=== PATIENT | male | born 1950 | race Two or more races ===

== ENCOUNTER 2024-11-22 15:36 | Inpatient (IN) | payer MEDICARE, MEDICAID ==
[~2024-11-22] VITALS: Ht 177.8 cm; Wt 80.1 kg
--- NOTE | 2024-11-22 15:53 | ECG ---
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
--- NOTE | 2024-11-22 16:21 | ED.PDOC ---
History of Present Illness HPI Comments This is a 73-year-old male with past medical history of hypertension bilateral DVT on warfarin, PAD with s/p stent in both legs, presented to the ED with a chief complaint of right-sided chest and abdominal pain after a mechanical fall for 4 days. Patient states that 4 days ago he had a fall and got hurt in chest and abdomen and after that he has rt sided lower sternal and right subcostal pain which is 6/10, sharp pain, localized without any aggravating and relieving factors. He took Tylenol for the pain but it did not relieved the pain at all. Denies fever, chills, shortness of breath, heaviness in the chest, dizziness, lightheadedness, dysuria, hematuria or any change in the bowel habit. Chief Complaint: Abdominal Pain Time Seen by MD: 15:42 Allergies: Coded Allergies: Penicillins (Verified Allergy, Severe, 11/22/24) Information Source: Patient Mode of Arrival: Ambulatory Severity: Moderate Timing: Days Duration: Since onset Prehospital treatment: None Past Medical History PAST MEDICAL HISTORY: HTN, PAD Past Medical History (Other): DVT Surgical History: PTCA Family History Family History: Family hx of Cancer, Family hx of heart kyle Social History Smoker: Non-Smoker Alcohol: Denies ETOH Use Drugs: Denies Drug Use Lives In: Home Constitutional: denies: chills, diaphoresis, fatigue, fever, malaise, sweats, weakness, others EENTM: denies: blurred vision, double vision, ear bleeding, ear discharge, ear drainage, ear pain, ear ringing, eye pain, eye redness, hearing loss, mouth pain, mouth swelling, nasal discharge, nose bleeding, nose congestion, nose pain, photophobia, tearing, throat pain, throat swelling, voice changes, others Respiratory: denies: cough, hemoptysis, orthopnea, SOB at rest, shortness of breath, SOB with excertion, stridor, wheezing, others Cardiovascular: reports: chest pain; denies: dizzy spells, diaphoresis, Dyspnea on exertion, edema, irregular heart beat, left arm pain, lightheadedness, palpitations, PND, syncope, others Gastrointestinal: reports: abdominal pain; denies: abdomen distended, blood streaked bowels, constipated, diarrhea, dysphagia, difficulty swallowing, hematemesis, melena, nausea, poor appetite, poor fluid intake, rectal bleeding, rectal pain, vomiting, others Genitourinary: denies: burning, dysuria, flank pain, frequency, hematuria, incontinence, penile discharge, penile sore, pain, testicle pain, testicle swelling, urgency, others Neurological: denies: dizziness, fainting, headache, left sided numbness, left sided weakness, numbness, paresthesia, pre-existing deficit, right sided numbness, right sided weakness, seizure, speech problems, tingling, tremors, weakness, others Musculoskeletal: denies: back pain, gout, joint pain, joint swelling, muscle pain, muscle stiffness, neck pain, others Integumetry: denies: bruises, change in color, change in hair/nails, dryness, laceration, lesions, lumps, rash, wounds, others Allergic/Immunocompromised: denies: Difficulty Healing, Frequent Infections, Hives, Itching, others Hematologic/Lymphatic: reports: blood clots; denies: anemia, easy bleeding, easy bruising, swollen glands, others Endocrine: denies: excessive hunger, excessive sweating, excessive thirst, excessive urination, flushing, intolerance to cold, intolerance to heat, unexpla ined weight gain, unexplained weight loss, others Psychiatric: denies: anxiety, bipolar disorder, depression, hopeless, panic disorder, schizophrenia, sleepless, suicidal, others Physical Exam General Appearance: Mild Distress HEENT: Normal ENT Inspection, Pharynx Normal, TMs Normal Neck: Full Range of Motion, Non-Tender, Normal, Normal Inspection Respiratory: Chest Non-Tender, Lungs Clear, No Accessory Muscle Use, No Respiratory Distress, Normal Breath Sounds Cardiovascular: No Edema, No JVD, No Murmur, No Gallop, Normal Peripheral Pulses, Regular Rate/Rhythm Breast Exam: Deferred Gastrointestinal: No Organomegaly, No Pulsatile Mass, Normal Bowel Sounds, RUQ, Tenderness Genitalia: Deferred Pelvic: Deferred Rectal: Deferred Extremities: No calf tenderness, Normal capillary refill, Normal inspection, Normal range of motion, Non-tender, No pedal edema Neurologic: Alert, 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 Was a procedure done?: No EKG EKG : Comments [facility] Test Date: 2024-11-22 Test Time: 15:47:17 Pat Name: MARIXA FELTON Department: [facility] ED Patient ID: [facility]-[id number] Room: Gender: M Retail Mortgage Banker: kamla : 1950 Requested By: SANDOVAL BOWLES Order Number: [id number] Reading MD: Measurements Intervals [place] Rate: 76 P: 49 HI: 150 QRS: 4 QRSD: 102 T: 54 QT: 411 QTc: 463 Interpretive Statements Sinus rhythm Differential Dx Considerations may include: Intractable abdominal pain, blunt trauma to the abdomen, lower rib fracture. X-Ray, Labs, Meds, VS Vital Signs Date Time Temp Pulse Resp B/P (MAP) Pulse Ox O2 Delivery O2 Flow Rate FiO2 11/22/24 15:47 76 11/22/24 15:37 97.2 73 18 158/78 95 97.2 Lab Test 11/22/24 16:28 Range/Units White Blood Count 9.5 4.4-10.8 10^3/uL Red Blood Count 4.35 L 4.5-5.90 10^6/uL Hemoglobin 13.7 13.5-17.5 g/dL Hematocrit 38.8 L 41.0-53.0 % Mean Corpuscular Volume 89.3 80.0-100.0 fL Mean Corpuscular Hemoglobin 31.6 28.0-32.0 pg Mean Corpuscular Hemoglobin Concent 35.4 32.0-36.0 g/dL Red Cell Distribution Width 14.2 11.8-14.3 % Platelet Count 310 140-450 10^3/uL Mean Platelet Volume 8.2 6.9-10.8 fL Neutrophils (%) (Auto) 51.5 37.0-80.0 % Lymphocytes (%) (Auto) 36.2 10.0-50.0 % Monocytes (%) (Auto) 10.0 0.0-12.0 % Eosinophils (%) (Auto) 1.6 0.0-7.0 % Basophils (%) (Auto) 0.7 0.0-2.0 % Neutrophils # (Auto) 4.9 1.6-8.6 10 ^3/uL Lymphocytes # (Auto) 3.4 0.4-5.4 10 ^3/uL Monocytes # (Auto) 0.9 0-1.3 10 ^3/uL Eosinophils # (Auto) 0.2 0-0.8 10 ^3/uL Basophils # (Auto) 0.1 0-0.2 10 ^3/uL Nucleated Red Blood Cells 0.1 % Sodium Level 139 136-145 mmol/L Potassium Level 4.1 3.5-5.1 mmol/L Chloride Level 106 98-107 mmol/L Carbon Dioxide Level 22 20-31 mmol/L Anion Gap 11 5-15 Blood Urea Nitrogen 25 H 9-23 mg/dL Creatinine 1.17 0.700-1.30 mg/dL Glomerular Filtration Rate Calc 67 >90 mL/min BUN/Creatinine Ratio 21.4 H 10.0-20.0 Serum Glucose 96 74-106 mg/dL Calcium Level 9.3 8.7-10.4 mg/dL X-Ray, Labs, Meds, VS Comment EXAMINATION: XY R RIB XRAY INDICATION: Rib pain, s/p fall COMPARISON: None TECHNIQUE: Frontal view of the chest and <OBLIQUE>> views of the R ribs history FINDINGS: No focal consolidation, pleural effusion or significant pneumothorax. Normal cardiomediastinal silhouette. No displaced right rib fracture. IMPRESSION: 1. No acute cardiopulmonary disease. No displaced right rib fracture. ORDERING PHYSICIAN: SANDOVAL BOWLES RESIDENT PROCEDURE(s): ABPL - CT AB PEL WO CON-NO ORAL OR IV REASON: Abdominal pain, status post fall ORDER NUMBER(s): [id number], ACCESSION NUMBER(s): [id number] COMPUTERIZED TOMOGRAPHY ABDOMEN AND PELVIS WITHOUT CONTRAST REASON FOR EXAM: Abdominal pain, status post fall FINDINGS: There is mild atelectasis at the lung bases. There is at least mild centrilobular emphysema. There is no pleural effusion. There is no pericardial effusion. There are coronary artery calcifications. The spleen is not enlarged. The liver is normal in size and contour. No calcified gallstone is identified. Evaluation of the abdominal organs is suboptimal in the absence of intravenous contrast. Unenhanced appearance of the pancreas is grossly unremarkable. The adrenal glands are normal. The kidneys are similar in size. There is a 2.6 cm simple exophytic cyst of the superior pole of the right kidney which requires no dedicated follow-up. There is no hydronephrosis of either kidney. The urinary bladder is unremarkable. The prostate and seminal vesicles are within normal limits. There is extensive descending sigmoid diverticulosis without evidence of diverticulitis. The colonic stool burden is small. The appendix is not definitely seen. There is no pericecal inflammatory change. There is no distention of the small bowel. No free fluid is identified in the abdomen or pelvis. There is no pneumoperitoneum. There is no pathologic lymphadenopathy by size criteria. There is no abdominal aortic aneurysm. There is extensive atherosclerosis. The right inguinal canal is empty. No acute osseous abnormality is identified. There are degenerative changes throughout the lumbar spine. IMPRESSION: No evidence of traumatic injury in the abdomen or pelvis. Images Reviewed?: Images reviewed and evaluated by me Time of 1ST Reevaluation: 19:07 Reevaluation 1ST: Unchanged Patient Education/Counseling: Diagnosis, Treatment Family Education/Counseling: Diagnosis, Treatment Comments This is a 73-year-old male presented to the ED with a chief complaint of right chest and abdominal pain after mechanical fall for 4 days Initial physical exam demonstrated mild tenderness right lower sternal and epigastric region. CBC and BMP were unremarkable CT abdomen pelvis without contrast demonstrated no evidence of traumatic injury in the abdomen or pelvis On 1st re-evaluation patient is still complaining of intractable abdominal pain. The patient will need inpatient admission for further evaluation and management of intractable abdominal pain SEPSIS Sepsis Screen Date sepsis recognized/suspect: Nov 22, 2024 Time Sepsis recognized/suspect: 1541 Recent Procedure: No On Antibiotic Therapy: No Respiratory Rate >20: No Heart Rate >90: No Temp<36 C (96.8 F) or >38.3 C: No SBP <90 or MAP <65 mmHG: No New Acute Mental Status Change: No Is the patient on CPAP, BIPAP,: No Physician Orders R Rib Xray (11/22/24 15:57) Urinalysis (11/22/24 15:57) Ct Ab Pel Wo Con-No Oral Or Iv (11/22/24 15:57) Vital Signs Date Time Temp Pulse Resp B/P (MAP) Pulse Ox O2 Delivery O2 Flow Rate FiO2 11/22/24 15:47 76 11/22/24 15:37 97.2 73 18 158/78 95 97.2 Laboratory Tests Test 11/22/24 16:28 White Blood Count 9.5 10^3/uL (4.4-10.8) Departure 1 Departure Time of Disposition: 19:11 Impression: Primary Impression: Intractable abdominal pain Disposition: 30 STILL A PATIENT Admit to: Med Surg Condition: Guarded Critical Care Note Critical Care Time?: No Stability Stability form required: SANDOVAL Pollard RESIDENT Nov 22, 2024 16:21
--- NOTE | 2024-11-22 16:38 | DVH ---
EXAMINATION: XY R RIB XRAY INDICATION: Rib pain, s/p fall COMPARISON: None TECHNIQUE: Frontal view of the chest and <OBLIQUE>> views of the R ribs history FINDINGS: No focal consolidation, pleural effusion or significant pneumothorax. Normal cardiomediastinal silhou ette. No displaced right rib fracture. IMPRESSION: 1. No acute cardiopulmonary disease. No displaced right rib fracture.
--- NOTE | 2024-11-22 16:48 | DVH ---
COMPUTERIZED TOMOGRAPHY ABDOMEN AND PELVIS WITHOUT CONTRAST REASON FOR EXAM: Abdominal pain, status post fall COMPARISON: None TECHNIQUE: Spiral scans were acquired from the diaphragm to the symphysis pubis without intravenous c ontrast administration. 2-D coronal and sagittal reformatted images were provided. Radiation optimiza tion: All CT scans at this facility use at least one of these dose optimization techniques: Automated exposure control mA and/or kV adjustment per patient size (includes targeted exams where dose is mat ched to clinical indication) or iterative reconstruction. RADIATION DOSE: CTDI: 8.57 mGy DLP: 506.60 mGy-cm FINDINGS: There is mild atelectasis at the lung bases. There is at least mild centrilobular emphysema. There is no pleural effusion. There is no pericardial effusion. There are coronary artery calcifications. The spleen is not enlarged. The liver is normal in size and contour. No calcified gallstone is identi fied. Evaluation of the abdominal organs is suboptimal in the absence of intravenous contrast. Unenh anced appearance of the pancreas is grossly unremarkable. The adrenal glands are normal. The kidneys are similar in size. There is a 2.6 cm simple exophytic cyst of the superior pole of the right kidney which requires no dedicated follow-up. There is no hydronephrosis of either kidney. The urinary blad misty is unremarkable. The prostate and seminal vesicles are within normal limits. There is extensive d escending sigmoid diverticulosis without evidence of diverticulitis. The colonic stool burden is sma ll. The appendix is not definitely seen. There is no pericecal inflammatory change. There is no dist ention of the small bowel. No free fluid is identified in the abdomen or pelvis. There is no pneumop eritoneum. There is no pathologic lymphadenopathy by size criteria. There is no abdominal aortic aneu rysm. There is extensive atherosclerosis. The right inguinal canal is empty. No acute osseous abnorm ality is identified. There are degenerative changes throughout the lumbar spine. IMPRESSION: No evidence of traumatic injury in the abdomen or pelvis.
[2024-11-22 16:49] LABS: Hematocrit 38.8 % (41.0-53.0); Hemoglobin 13.7 g/dL (13.5-17.5); Mean Corpuscular Hemoglobin 31.6 pg (28.0-32.0); Mean Corpuscular Volume 89.3 fL (80.0-100.0); Nucleated Red Blood Cells % 0.1 %
[2024-11-22 16:54] LABS: Chloride 106 mmol/L (98-107); Potassium 4.1 mmol/L (3.5-5.1); Sodium 139 mmol/L (136-145)
[2024-11-22 16:55] LABS: Anion Gap 11 (5-15); Calcium 9.3 mg/dL (8.7-10.4); Carbon Dioxide 22 mmol/L (20-31)
[2024-11-22 17:00] LABS: BUN/Creatinine Ratio 21.4 (10.0-20.0); Glucose 96 mg/dL (74-106)
[2024-11-22 17:07] LABS: Blood Urea Nitrogen 25 mg/dL (9-23)
[2024-11-22 20:12] VITALS: O2SAT 98
[2024-11-22] MEDS: MORPHINE SULFATE INJ 2 MG/ml SYRG IV ONE (20:20)
[2024-11-22 21:13] LABS: Urine Protein, UAD Negative (Negative)
[2024-11-22] MEDS ORDERED: NITROGLYCERIN 0.4 MG SL TAB SL PRN (21:15)
[2024-11-22] MEDS ORDERED: MORPHINE SULFATE INJ 2 MG/ml SYRG IV PRN (21:15)
--- NOTE | 2024-11-22 21:17 | DVHHPRES ---
History of Present Illness Resident Creating Document: ELVIJESS RESIDENT History of Present Illness 73-year-old male presented to the ER with history of fall 3 days back, he did not feel dizzy before fall. No confusion after the fall. He started having shortness of breath and chest and abdominal pain following the fall. He went to [facility] and after full workup, he was diagnosed with contusion. Now he came to our hospital because his chest and abdominal pain increased. Abdominal pain rating 8/10,located in the right upper part, it radiates to the back, aggravates on coughing or movement. He will still has some dry cough, not mixed with blood. His chest pain increases with coughing and giggling. Shortness of breaths increases on lying down. The patient reports feeling better after taking morphine in the ER, He denies any fever, nausea, or vomiting or any other complaints today. Past medical history: Hypertension, carotid artery thrombus Past surgical history: Hernia repair, appendectomy Home medications: Lisinopril, hydrochlorothiazide, amlodipine, warfarin, carvedilol, atorvastatin Allergies: Amount and penicillins Family history: Brother of heart attack at 58, mother had unknown cancer, younger sister had childhood leukemia PCP: [facility] Smoking history: 87 pack years. Quit 5 years ago. The patient has been smoking since he was 15-year-old before quitting, 1 and half pack per day. Alcohol: Has been drinking regularly till now, since he was 16-year-old.2-3 glasses per day Drugs: None Lives at home with his niece Code status: Full code Review of Systems Respiratory: Cough, Pleuritic Pain Cardiovascular: Chest Pain Gastrointestinal: Abdominal Pain Allergies: Coded Allergies: Penicillins (Verified Allergy, Severe, 11/22/24) Exam Vital Signs Vital Signs Date Time Temp Pulse Resp B/P (MAP) Pulse Ox O2 Delivery O2 Flow Rate FiO2 11/22/24 20:20 73 19 163/91 11/22/24 20:12 98 Room Air* 0 21 11/22/24 19:52 97.6 97.6 Exam Pt is lying on bed General Appearance: Alert, Oriented X3, Cooperative, Mild distress HEENT: Atraumatic, Mucous membranes moist/pink Respiratory: Clear to auscultation, Normal air movement, No added sounds Cardiovascular: Regular rate, Normal S1, Normal S2, No murmurs Abdominal/ : Active bowel sounds, Soft, no distention,tenderness has the right hypochondriac region Extremities: No edema, Normal pulses, No tenderness/swelling Skin: No Significant rash, except past surgical scars Neuro: Normal speech, sensorimotor deficits none Psych/Mental Status: Mental status NL, Mood NL Nurse was there as experience specialist during examination Labs/Xrays Labs Test 11/22/24 20:15 11/22/24 16:43 11/22/24 16:28 Range/Units Lipase 31 12-53 U/L White Blood Count 9.5 4.4-10.8 10^3/uL Red Blood Count 4.35 L 4.5-5.90 10^6/uL Hemoglobin 13.7 13.5-17.5 g/dL Hematocrit 38.8 L 41.0-53.0 % Mean Corpuscular Volume 89.3 80.0-100.0 fL Mean Corpuscular Hemoglobin 31.6 28.0-32.0 pg Mean Corpuscular Hemoglobin Concent 35.4 32.0-36.0 g/dL Red Cell Distribution Width 14.2 11.8-14.3 % Platelet Count 310 140-450 10^3/uL Mean Platelet Volume 8.2 6.9-10.8 fL Neutrophils (%) (Auto) 51.5 37.0-80.0 % Lymphocytes (%) (Auto) 36.2 10.0-50.0 % Monocytes (%) (Auto) 10.0 0.0-12.0 % Eosinophils (%) (Auto) 1.6 0.0-7.0 % Basophils (%) (Auto) 0.7 0.0-2.0 % Neutrophils # (Auto) 4.9 1.6-8.6 10 ^3/uL Lymphocytes # (Auto) 3.4 0.4-5.4 10 ^3/uL Monocytes # (Auto) 0.9 0-1.3 10 ^3/uL Eosinophils # (Auto) 0.2 0-0.8 10 ^3/uL Basophils # (Auto) 0.1 0-0.2 10 ^3/uL Nucleated Red Blood Cells 0.1 % Sodium Level 139 136-145 mmol/L Potassium Level 4.1 3.5-5.1 mmol/L Chloride Level 106 98-107 mmol/L Carbon Dioxide Level 22 20-31 mmol/L Anion Gap 11 5-15 Blood Urea Nitrogen 25 H 9-23 mg/dL Creatinine 1.17 0.700-1.30 mg/dL Glomerular Filtration Rate Calc 67 >90 mL/min BUN/Creatinine Ratio 21.4 H 10.0-20.0 Serum Glucose 96 74-106 mg/dL Calcium Level 9.3 8.7-10.4 mg/dL SEPSIS Sepsis Screen Date sepsis recognized/suspect: Nov 22, 2024 Time Sepsis recognized/suspect: 1540 Recent Procedure: No On Antibiotic Therapy: No Respiratory Rate >20: No Heart Rate >90: No Temp<36 C (96.8 F) or >38.3 C: No SBP <90 or MAP <65 mmHG: No New Acute Mental Status Change: No Is the patient on CPAP, BIPAP,: No Physician Orders R Rib Xray (11/22/24 15:57) Urinalysis (11/22/24 15:57) Ct Ab Pel Wo Con-No Oral Or Iv (11/22/24 15:57) Admit (11/22/24 21:14) Nitroglycerin Sublingual (Ntrostat Subli (11/22/24 21:15) Morphine Sulfate Injection (11/22/24 21:15) Oxygen By Nasal Cannula (11/22/24 21:14) Stat Ekg For Chest Pain (11/22/24 21:14) Notify Of Changes From Base (11/22/24 21:14) Vital Signs Date Time Temp Pulse Resp B/P (MAP) Pulse Ox O2 Delivery O2 Flow Rate FiO2 11/22/24 20:20 73 19 163/91 11/22/24 20:12 98 Room Air* 0 21 11/22/24 19:52 97.6 73 14 163/91 (115) 95 97.6 11/22/24 15:47 76 11/22/24 15:37 97.2 73 18 158/78 95 97.2 Laboratory Tests Test 11/22/24 16:28 White Blood Count 9.5 10^3/uL (4.4-10.8) Medications Medications Dose Ordered Sig/Stephania Route Start Time Stop Time Status Last Admin Dose Admin Morphine Sulfate 2 mg ONCE ONCE IV 11/22/24 19:15 11/22/24 19:27 DC 11/22/24 20:20 2 MG Assessment/Plan Assessment/Plan Intractable abdominal and chest pain status post fall due to blunt trauma to the chest and abdomen CXR: No acute cardiopulmonary disease EKG: Sinus rhythm, no ischemic changes Abdomen pelvis CT: No evidence of traumatic injury in the abdomen and pelvis. There is mild atelectasis at the lung bases. There is at least mild cent rilobular emphysema. There is no pleural effusion. There is no pericardial effusion. There are coronary artery calcifications. Lipase 31 BNP ordered -IV normal saline 75 mL/hour -Tylenol for mild pain -[place] for moderate pain Uncontrolled hypertension: Clonidine 0.1 mg once given Amlodipine Hydrochlorothiazide Lisinopril History of carotid and extremities thrombus Warfarin 5 mg (patient takes 7.5 mg per day once daily, he takes 5 mg on ) Hyperlipidemia Atorvastatin 40 mg GI prophylaxis: Pantoprazole DVT prophylaxis: Not indicated, patient on warfarin Diet: Cardiac Goals of care discussed with the patient for more than 27 minutes: Full code st atus Case discussed with , patient and RN Plan discussed with: Patient, Other (RN) My Orders Orders - JESS BOLES Procedure Category Date Status Time Admit ADMIT 11/22/24 Verified 21:14 Nitroglycerin PHA 11/22/24 Verified Sublingual (Ntrostat 21:15 Morphine Sulfate PHA 11/22/24 Verified Injection 21:15 Oxygen By Nasal RT 11/22/24 Verified Cannula 21:14 Stat Ekg For Chest BRIJESH 11/22/24 Verified Pain 21:14 Notify Md Of Changes BRIJESH 11/22/24 Verified From Base 21:14 Date of Service: Nov 23, 2024 Billing Provider: QUINTEN FAY MD Common Visit Codes: 20379-[id number] INP/OBS CARE (HIGH) Secondary Visit Codes: [id number] CARE PLAN 30 MINUTES JESS BOLES Nov 22, 2024 21:17
[2024-11-22 21:49] LABS: Opiate Scree,Urine Neg (NEGATIVE)
[2024-11-22 21:56] LABS: Amphetamine Screen, Urine Neg (NEGATIVE); Barbiturate Scree,Urine Neg (NEGATIVE); Benzodiazephine Screen, Urine Neg (NEGATIVE); Cannabinoid Screen, Urine Neg (NEGATIVE); Cocaine Screen, Urine Neg (NEGATIVE); Phencyclidine Screen, Urine Neg (NEGATIVE)
[2024-11-22] MEDS ORDERED: LISI20TA56 PO (22:48)
[2024-11-22] MEDS ORDERED: ASPI1TAB20 PO (22:48)
[2024-11-22] MEDS ORDERED: ATOR40TA52 PO (22:48)
[2024-11-22] MEDS ORDERED: HYDR25TA4 PO (22:48)
[2024-11-22] MEDS ORDERED: AMLO1TAB22 PO (22:48)
[2024-11-22] MEDS ORDERED: WARF-66 PO (22:48)
[2024-11-22] MEDS ORDERED: CARV12.544 PO (22:48)
[2024-11-22] MEDS: LISINOPRIL 20 MG TAB PO ONE (22:53)
[2024-11-22] MEDS: hydroCHLOROthiazide 25 MG TAB PO ONE (22:54)
[2024-11-22] MEDS: SODIUM CHLORIDE 0.9% 1,000 ML IV ONE (22:55)
[2024-11-23] VITALS (8 sets, daily range): BP systolic 132–162; BP diastolic 81–91; PULSE 68–74; RESP 16–19; TEMP 97.3–98.7; O2SAT 93–97
[2024-11-23 00:51] LABS: COVID19 ANTIGEN SOFIA FIA NEGATIVE (NEGATIVE)
[2024-11-23] MEDS: ACETAMINOPHEN 325 MG TAB PO PRN (02:20)
[2024-11-23] MEDS: MORPHINE SULFATE INJ 2 MG/ml SYRG IV ONE (02:57)
[2024-11-23] MEDS: CARVEDILOL 12.5 MG TAB PO ONE (10:25)
[2024-11-23] MEDS: ATORVASTATIN 20 MG TAB PO ONE (10:25)
[2024-11-23] MEDS: LISINOPRIL 20 MG TAB PO ONE (10:26)
--- NOTE | 2024-11-23 10:26 | DVH ---
INDICATION: cough TECHNIQUE: Frontal view of the chest. COMPARISON: None FINDINGS: . The heart and mediastinal contours are grossly unremarkable. There is no evidence of pleural disea se. The lungs are clear. The bony structures of the chest are intact without fracture. IMPRESSION: 1. No evidence of acute disease.
[2024-11-23] MEDS: hydroCHLOROthiazide 25 MG TAB PO SCH (10:27)
[2024-11-23 12:02] LABS: Calcium 9.6 mg/dL (8.7-10.4); Chloride 103 mmol/L (98-107); Potassium 4.3 mmol/L (3.5-5.1)
[2024-11-23 12:03] LABS: Anion Gap 11 (5-15); Carbon Dioxide 22 mmol/L (20-31)
[2024-11-23 12:05] LABS: Sodium 136 mmol/L (136-145)
[2024-11-23 12:08] LABS: BUN/Creatinine Ratio 15.8 (10.0-20.0); Blood Urea Nitrogen 16 mg/dL (9-23)
[2024-11-23 12:11] LABS: Glucose 109 mg/dL (74-106)
[2024-11-23 12:38] LABS: Hematocrit 40.9 % (41.0-53.0); Hemoglobin 14.0 g/dL (13.5-17.5); Mean Corpuscular Hemoglobin 30.7 pg (28.0-32.0); Mean Corpuscular Volume 89.8 fL (80.0-100.0); Nucleated Red Blood Cells % 0.1 %
[2024-11-23 12:47] LABS: INR 2.83 (0.9-1.15); Prothrombin Time 27.1 sec (9.3-11.8)
[2024-11-23] MEDS: WARFARIN SODIUM 5 MG TAB PO ONE (17:08)
[2024-11-23] MEDS: HYDROcodone-ACET 5/325MG TAB PO PRN (17:17)
[2024-11-23] MEDS: hydroCHLOROthiazide 25 MG TAB PO ONE (17:18)
--- NOTE | 2024-11-23 17:40 | DVHPNRES ---
Progress Note Date Seen: Nov 23, 2024 Resident Creating Document: YULIANA LOPEZ RESIDENT Medical Necessity Reason Pt with a Central, PICC or Fol: No Subjective Review of Systems The patient is a 73 year old male who came to the ER with the complaint of 4 days of pain on the right side of his abdomen . According to the patient, he was standing on a step stool and reaching out to something when the step stool slipped and fell on the ground impacting his right abdomen. He did not complain of dizziness or loss of consciousness before or after the episode. He had shortness of breath and chest pain after the episode. So the patient went to [facility] where he was discharged after full workup and told he has contusions. The patient states his pain increased on going back home and he came to the ER. The patient states shortness of breath increases on lying down. Past medical history: Hypertension, carotid artery thrombus, clot in leg (thrombectomy?) Past surgical history: Hernia repair, appendectomy Home medications: Lisinopril, hydrochlorothiazide, amlodipine, warfarin, carvedilol, atorvastatin Allergies: penicillins Family history: Brother of heart attack at 58, mother had unknown cancer, younger sister had childhood leukemia PCP: [facility] Smoking history: 80 pack years. Quit 5 years ago. The patient has been smoking since he was 15-year-old before quitting, 1 and half pack per day. Alcohol: Has been drinking regularly till now, since he was 16-year-old.2-3 glasses per day Drugs: None Lives at home with his niece Code status: Full code Patient seen and examined at bedside. Patient is alert and oriented to time, place person and responding to all questions. Eyes: No Pain, No Vision change, No Conjunctivae inflammation, No Eyelid inflammation, No Other, No Redness ENT: No Ear pain, No Ear discharge, No Nose pain, No Nose discharge, No Nose congestion, No Mouth pain, No Mouth swelling, No Throat pain, No Throat swelling, No Other Cardiovascular: No Chest Pain, No Palpitations, No Orthopnea, No Paroxysmal No Dyspnea, No Edema, No Lt Headedness, No Other Respiratory: dry cough, Shortness of breath on lying down, No Wheezing, No Hemoptysis, No Pleuritic Pain, No Sputum, No Other Gastrointestinal: No Nausea, No Vomiting,right sided Abdominal Pain, No Diarrhea, No Constipation, No Melena, No Hematochezia, No Other Genitourinary: No Dysuria, No Frequency, No Incontinence, No Hematuria, No Retention, No Other General Appearance: Cooperative. Well developed. Well nourished. NAD Head Exam: Normal inspection Neck Exam: Normal inspection. Non-tender. Normal alignment Pulmonary/Respiratory: Chest non-tender. Clear bilateral breath sounds, no crackles, no wheezing. Cardiovascular/Chest: Regular rate and rhythm. No murmurs. No JVD. Peripheral Pulses: 2+ Radial (R). 2+ Radial (L). 2+ Pedal (R). 2+ Pedal (L) Abdominal Exam: Normal bowel sounds. Soft. normal abdomen, no visible veins, tenderness on right side of abdomen, small mobile mass on left upper abdomen ,No hepatospenomegaly Ankle Exam: Negative ankle edema Lower extremities: Negative lower extremity edema Neuro/Mental Status: A&O x4. Coherent. Thoughts/Psych: Normal thought pattern. Appropriate mood and affect. Good judgement and insight Skin Exam: Normal inspection. Normal color. Warm. D Objective vital signs Vital Sign Date Time Temp Pulse Resp B/P (MAP) Pulse Ox O2 Delivery O2 Flow Rate FiO2 11/23/24 17:18 154/89 11/23/24 16:44 97.7 72 19 97 97.7 11/23/24 08:00 Room Air* 0 21 Total Intake and Output 11/22/24 11/22/24 11/23/24 15:00 23:00 07:00 Intake Total 800 ml Balance 800 ml medications Current Medications Medications Dose Ordered Sig/Stephania Route Start Time Stop Time Status Last Admin Dose Admin Nitroglycerin 0.4 mg Q5MINP PRN SL 11/22/24 21:15 Morphine Sulfate 2 mg Q30M PRN IV 11/22/24 21:15 Amlodipine Besylate 5 mg DAILY PO 11/23/24 10:00 11/23/24 10:24 5 MG Acetaminophen/ Hydrocodone Bitart 1 tab Q8HPRN PRN PO 11/23/24 03:00 11/23/24 17:17 1 TAB Acetaminophen 650 mg Q6HP PRN PO 11/23/24 03:15 Hydrochlorothiazide 12.5 mg DAILY PO 11/24/24 10:00 Lisinopril 20 mg DAILY PO 11/24/24 10:00 laboratory and microbiology Laboratory Tests 11/23/24 11:19 Test 11/23/24 11:19 Range/Units Serum Glucose 109 H 74-106 mg/dL Labs and/or images reviewed: Labs reviewed by me, Image(s) reviewed by me Problem List/Assessment/Plan Problem List/Assessment/Plan #intractable abdominal pain post fall due to blunt trauma -CT abdomen -traumatic injury ruled out -no rib fracture on Xray # hypertensive urgency -clonidine 0.1 mg po once -amlodipine 5mg -hydrochlorothiazide 12.5 mg -lisinopril 20mg #history of carotid and lower extremity thrombus # hypercoagulable state due to above -warfarin 5mg after checking INR (2.83) (patient takes 7.5 mg daily at home every day and 5mg on ) #hyperlipidemia atorvastatin 40mg #allergy to penicillins PUD prophylaxis: pantoprazole DVT prophylaxis: patient on warfarin Goals of care: Full code, discussed for15 minutes on 11/22/24 Plan discussed with patient Plan discussed with Dr Bello Plan discussed with: Patient, Other Date of Service: Nov 23, 2024 Billing Provider: ARNOLD BELLO MD Common Visit Codes: [id number] INP/OBS CARE(HIGH) Secondary Visit Codes: [id number] CARE PLAN 30 MINUTES YULIANA LOPEZ RESIDENT Nov 23, 2024 17:40 JOSE MANUEL LARA RESIDENT Nov 24, 2024 06:42 ARNOLD BELLO MD Nov 25, 2024 21:21
--- NOTE | 2024-11-24 00:13 | DVHSR ---
APPROVED REPORT EXAM: Two-dimensional and M-mode echocardiogram with Doppler and color Doppler. Blood Pressure: 153/90 mmHg INDICATION chf? RISK FACTORS Height: 5'10, Weight: 177 DIMENSIONS LVDd3.8 (3.8-5.7cm)LA (2D)3.1 (1.9-4.0cm)Aortic Root3.6 (2.0-3.7cm) LVDs2.7 (2.5-4.0cm)LA (MM) (1.9-4.0cm)Aortic Cusp Exc1.9 (1.5-2.0cm) EF (%) 54.0 (55-70%)Rt. Atrium3.4 (1.9-4.0cm)Asc. Aorta cm IVSd1.1 (0.7-1.1cm)RV (D)3.7 (1.8-2.4cm) PWd0.8 (0.7-1.1cm) Mitral Valve MitralMitral Stenosis E wave0.59m/sMV Mean GR.mmHg A wave1.01m/sMV Peak GR.mmHg E/A ratio0.62D MVAcm2 DECEL [id number] 1/2 Timems Aortic Valve Aortic ValveAortic Stenosis V10.82m/Zaida Mean GR.2mmHg V20.99m/Zaida Peak GR.4mmHg LVOT Diameter2.4 (1.8-2.4cm)Doppler AVA3.75cm2 Pulmonic Valve V20.87m/s Other Information Quality : Technically LimitedRhythm : Technically limited study due to pt unable to lay on side, c/o of pain Conclusion MILD LVH AND MILD LV DIASTOLIC DYSFUNCTION LV EF IS 65% CALCIFIED MITRAL ANUULUS AORTIC SCLEROSIS SLIGHTLY DILATED LA NORMAL RV FUNCTION NO EFFUSION
[2024-11-24 01:00] VITALS: BP 109/74; PULSE 74; RESP 17; TEMP 97.6; O2SAT 90
[2024-11-24 05:00] VITALS: BP 135/80; PULSE 75; RESP 17; TEMP 97.2; O2SAT 90
[2024-11-24 07:41] LABS: Chloride 104 mmol/L (98-107); Hematocrit 40.6 % (41.0-53.0); Hemoglobin 13.9 g/dL (13.5-17.5); Mean Corpuscular Hemoglobin 31.2 pg (28.0-32.0); Mean Corpuscular Volume 91.0 fL (80.0-100.0); Nucleated Red Blood Cells % 0.1 %; Potassium 4.2 mmol/L (3.5-5.1)
[2024-11-24 07:42] LABS: Anion Gap 12 (5-15); Calcium 9.1 mg/dL (8.7-10.4); Carbon Dioxide 20 mmol/L (20-31)
[2024-11-24 07:47] LABS: BUN/Creatinine Ratio 12.9 (10.0-20.0); Blood Urea Nitrogen 21 mg/dL (9-23); Glucose 105 mg/dL (74-106)
[2024-11-24 07:48] LABS: Sodium 136 mmol/L (136-145)
[2024-11-24 08:21] VITALS: BP 135/78; PULSE 82; RESP 18; TEMP 97.8; O2SAT 92
[2024-11-24] MEDS: hydroCHLOROthiazide 25 MG TAB PO SCH (09:05)
[2024-11-24] MEDS: LISINOPRIL 20 MG TAB PO SCH (09:06)
[2024-11-24] MEDS: SODIUM CHLORIDE 0.9% 1,000 ML IV SCH (09:30)
[2024-11-24] MEDS ORDERED: hydroCHLOROthiazide 25 MG TAB PO SCH (10:00)
[2024-11-24 12:30] VITALS: BP 120/76; PULSE 77; RESP 18; TEMP 97.8; O2SAT 93
[2024-11-24 12:39] LABS: Protein, Urine < 6.0 mg/dL (1-14)
--- NOTE | 2024-11-24 16:57 | DVHPNRES ---
Progress Note Date Seen: Nov 24, 2024 Resident Creating Document: YULIANA LOPEZ RESIDENT Medical Necessity Reason Pt with a Central, PICC or Fol: No Subjective Review of Systems The patient is a 73 year old male who came to the ER with the complaint of 4 days of pain on the right side of his abdomen . According to the patient, he was standing on a step stool and reaching out to something when the step stool slipped and he fell on the ground impacting his right abdomen. He did not complain of dizziness or loss of consciousness before or after the episode. He had shortness of breath and chest pain after the episode. So the patient went to [facility] where he was discharged after full workup and told he has contusions. The patient states his pain increased on going back home and he came to the ER. The patient states shortness of breath increases on lying down. His pain reduced since yesterday. His warfarin was restarted after being held for a while after his INR was reported as 2.83.His creatinine increased from 1.01 to 1.63 today so his lisinopril was put on hold and IV fluids were started at 100ml /hr. PE was ruled out with a normal D-dimer. Past medical history: Hypertension, carotid artery thrombus, clot in leg (thrombectomy?) Past surgical history: Hernia repair, appendectomy Home medications: Lisinopril, hydrochlorothiazide, amlodipine, warfarin, carvedilol, atorvastatin Allergies: penicillins Family history: Brother of heart attack at 58, mother had unknown cancer, younger sister had childhood leukemia PCP: [facility] Smoking history: 80 pack years. Quit 5 years ago. The patient has been smoking since he was 15-year-old before quitting, 1 and half pack per day. Alcohol: Has been drinking regularly till now, since he was 16-year-old, 2-3 glasses per day Drugs: None Lives at home with his niece Code status: Full code Patient seen and examined at bedside. Patient is alert and oriented to time, place person and responding to all questions. Eyes: No Pain, No Vision change, No Conjunctivae inflammation, No Eyelid inflammation, No Other, No Redness ENT: No Ear pain, No Ear discharge, No Nose pain, No Nose discharge, No Nose congestion, No Mouth pain, No Mouth swelling, No Throat pain, No Throat swelling, No Other Cardiovascular: No Chest Pain, No Palpitations, No Orthopnea, No Paroxysmal No Dyspnea, No Edema, No Lt Headedness, No Other Respiratory: dry cough, Shortness of breath on lying down, No Wheezing, No Hemoptysis, No Pleuritic Pain, No Sputum, No Other Gastrointestinal: No Nausea, No Vomiting,right sided Abdominal Pain, No Diarrhea, No Constipation, No Melena, No Hematochezia, No Other Genitourinary: No Dysuria, No Frequency, No Incontinence, No Hematuria, No Retention, No Other Objective vital signs Vital Sign Date Time Temp Pulse Resp B/P (MAP) Pulse Ox O2 Delivery O2 Flow Rate FiO2 11/24/24 12:30 97.8 77 18 120/76 (91) 93 97.8 11/24/24 07:30 Room Air* 0 21 Total Intake and Output 11/23/24 11/23/24 11/24/24 15:00 23:00 07:00 Intake Total 1150 ml 480 ml Balance 1150 ml 480 ml medications Current Medications Medications Dose Ordered Sig/Stephania Route Start Time Stop Time Status Last Admin Dose Admin Nitroglycerin 0.4 mg Q5MINP PRN SL 11/22/24 21:15 Morphine Sulfate 2 mg Q30M PRN IV 11/22/24 21:15 Amlodipine Besylate 5 mg DAILY PO 11/23/24 10:00 11/24/24 09:06 5 MG Acetaminophen/ Hydrocodone Bitart 1 tab Q8HPRN PRN PO 11/23/24 03:00 11/24/24 09:04 1 TAB Acetaminophen 650 mg Q6HP PRN PO 11/23/24 03:15 Hydrochlorothiazide 12.5 mg DAILY PO 11/24/24 10:00 11/24/24 09:05 12.5 MG Sodium Chloride 1,000 ml @ 100 mls/hr Q10H IV 11/24/24 09:30 11/24/24 09:30 100 MLS/HR Warfarin Sodium RX PROTOCOL PER PHARMACY PO 11/24/24 15:30 Examination General Appearance: Cooperative. Well developed. Well nourished. NAD Head Exam: Normal inspection Neck Exam: Normal inspection. Non-tender. Normal alignment Pulmonary/Respiratory: Chest non-tender. Clear bilateral breath sounds, no crackles, no wheezing. Cardiovascular/Chest: Regular rate and rhythm. No murmurs. No JVD. Peripheral Pulses: 2+ Radial (R). 2+ Radial (L). 2+ Pedal (R). 2+ Pedal (L) Abdominal Exam: Normal bowel sounds. Soft. normal abdomen, no visible veins, tenderness on right side of abdomen, small mobile mass on left upper abdomen; no bruise/opening ,No hepatosplenomegaly Ankle Exam: Negative ankle edema Lower extremities: Negative lower extremity edema Neuro/Mental Status: A&O x4. Coherent. Thoughts/Psych: Normal thought pattern. Appropriate mood and affect. Good judgement and insight Skin Exam: Normal inspection. Normal color. Warm. laboratory and microbiology Laboratory Tests 11/24/24 06:53 Test 11/24/24 06:53 Range/Units Serum Glucose 105 74-106 mg/dL Labs and/or images reviewed: Labs reviewed by me, Image(s) reviewed by me Problem List/Assessment/Plan Problem List/Assessment/Plan #intractable abdominal pain post fall due to blunt trauma -CT abdomen -traumatic injury ruled out -no rib fracture on X-ray #hypertensive urgency -clonidine 0.1 mg po once -amlodipine 5mg -hydrochlorothiazide 12.5 mg -lisinopril 20mg #history of carotid and lower extremity thrombus -warfarin 5mg after checking INR (2.83) (patient takes 7.5 mg daily at home every day and 5mg on ) #hyperlipidemia atorvastatin 40mg #ruled out PE D-dimer 0.2 #secondary hypercoagulable state; warfarin #diastolic dysfunction MILD LVH AND MILD LV DIASTOLIC DYSFUNCTION LV EF IS 65% CALCIFIED MITRAL ANNULUS AORTIC SCLEROSIS SLIGHTLY DILATED LA NORMAL RV FUNCTION NO EFFUSION #allergy to penicillins #PANCHITO; most likely vasomotor nephropathy NaCL at 100ml/hr To avoid nephrotoxic agents #Alcohol use disorder Counseled for 16 minute on alcohol use cessation PUD prophylaxis: pantoprazole DVT prophylaxis: patient on warfarin Goals of care discussed for 20 minutes with the patient: Full code Plan discussed with patient Plan discussed with Dr Man Plan discussed with: Patient, Other (RN) ADDENDUM ADDENDUM ADDENDUM I was physically present for the shane portions of the service provided to patient by THE RESIDENT. I have reviewed the documentation, discussed the case with resident and agree with the resident's documentation except as noted. Also the patient's clinical case was discussed with the patient's nurse. This medical document was created using an electronic medical record system with computerized dictation system. Although this document has been carefully reviewed, there might still be some phonetic and typographical errors. These areas are purely typographical due to imperfections of the software programs, and do not reflect any compromise in the patient's medical care. Late signature. Date of Service: Nov 24, 2024 Billing Provider: MARY JO MAN MD Common Visit Codes: [id number] INP/OBS CARE(HIGH) Secondary Visit Codes: [id number] CHNG SMOKING >10MIN (Counseled on alcohol use cessation for 16 minutes), [id number] CARE PLAN 30 MINUTES (20 minutes) YULIANA LOPEZ RESIDENT Nov 24, 2024 16:57 MARY JO MAN MD Nov 27, 2024 08:39
[2024-11-24 16:59] LABS: INR 2.68 (0.9-1.15); Partial Thromboplastin Time 40.0 SEC (24.5-34.5); Prothrombin Time 25.8 sec (9.3-11.8)
[2024-11-24 17:00] VITALS: BP 135/83; PULSE 74; RESP 17; TEMP 97.4; O2SAT 94
[2024-11-24] MEDS ORDERED: WARFARIN SODIUM 2.5 MG TAB PO SCH (17:00)
[2024-11-24] MEDS: WARFARIN SODIUM 2.5 MG TAB PO ONE (19:38)
--- NOTE | 2024-11-24 20:51 | DVH ---
ULTRASOUND CAROTID DUPLEX BILATERAL REASON FOR EXAM: s/p fall, question hx of carotid artery occlusion COMPARISON: None TECHNIQUE: Using real-time freeze-frame technique with a high-frequency small parts transducer, cale iple longitudinal and transverse sections were obtained. Simultaneous color flow Doppler imaging was performed. FINDINGS: There is moderate to severe calcified and noncalcified plaque present in both internal car otid arteries. The left internal carotid artery is occluded proximally. Flow through the vertebral a nd external carotid arteries is antegrade bilaterally. PEAK SYSTOLIC VELOCITIES (cm/sec): RIGHT: CCA 82.6 Proximal ICA 104.8 Mid ICA 105.2 Distal ICA 99.9 ECA 203.4 ICA/CCA ratio 1.3 LEFT: CCA 70.5 Proximal ICA occluded Mid ICA 122.3 Distal ICA 120.2 ECA 121.3 ICA/CCA ratio 1.7 IMPRESSION: Moderate to severe atherosclerotic disease. The left internal carotid artery is occluded at the origin but there is flow distal to the occlusion. Consider further evaluation with CTA of the neck. Measurement of carotid stenosis is based on velocity parameters that correlate the residual internal carotid diameter with that of the more distal vessel in accordance with the [place] Symptomati c Carotid Endarterectomy Trial (NASCET).
[2024-11-24 21:00] VITALS: BP 136/80; PULSE 73; RESP 16; TEMP 98.2; O2SAT 93
[2024-11-25 01:00] VITALS: BP 126/69; PULSE 75; RESP 16; TEMP 97.9; O2SAT 93
[2024-11-25 05:00] VITALS: BP 144/80; PULSE 76; RESP 17; TEMP 98; O2SAT 92
[2024-11-25 08:07] LABS: Hematocrit 39.4 % (41.0-53.0); Hemoglobin 13.3 g/dL (13.5-17.5); Mean Corpuscular Hemoglobin 30.6 pg (28.0-32.0); Mean Corpuscular Volume 91.2 fL (80.0-100.0); Nucleated Red Blood Cells % 0.0 %
[2024-11-25 08:12] LABS: Calcium 8.7 mg/dL (8.7-10.4); Chloride 106 mmol/L (98-107); Potassium 4.4 mmol/L (3.5-5.1); Sodium 138 mmol/L (136-145)
[2024-11-25 08:13] LABS: Anion Gap 11 (5-15); Carbon Dioxide 21 mmol/L (20-31)
[2024-11-25 08:18] LABS: BUN/Creatinine Ratio 16.7 (10.0-20.0); Blood Urea Nitrogen 20 mg/dL (9-23); Glucose 99 mg/dL (74-106)
[2024-11-25 08:43] LABS: INR 2.88 (0.9-1.15); Partial Thromboplastin Time 41.0 SEC (24.5-34.5); Prothrombin Time 27.5 sec (9.3-11.8)
[2024-11-25 09:00] VITALS: BP 150/79; PULSE 83; RESP 18; TEMP 98.1; O2SAT 94
[2024-11-25] MEDS: ACETAMINOPHEN 325 MG TAB PO PRN (09:37)
[2024-11-25 12:46] VITALS: BP 157/81; PULSE 86; RESP 18; TEMP 97.8; O2SAT 94
[2024-11-25] MEDS ORDERED: HYDR-4902 PO (15:25)
[2024-11-25 15:36] VITALS: BP 140/71; PULSE 74; RESP 18; TEMP 36.6
[2024-11-25] MEDS ORDERED: WARFARIN SODIUM 5 MG TAB PO ONE (17:00)
--- NOTE | 2024-11-25 17:42 | DVHDSRES ---
Discharge Summary Date of Admission Resident Creating Document: KAROL JONES RESIDENT Nov 22, 2024 at 21:14 Date of Discharge: Nov 25, 2024 Admitting Diagnosis Abdominal Pain Labs/Diagnostic Data: Laboratory Results Test 11/25/24 06:06 11/24/24 14:13 11/24/24 11:55 11/24/24 06:53 White Blood Count 12.7 10^3/uL (4.4-10.8) Red Blood Count 4.33 10^6/uL (4.5-5.90) Hemoglobin 13.3 g/dL (13.5-17.5) Hematocrit 39.4 % (41.0-53.0) Mean Corpuscular Volume 91.2 fL (80.0-100.0) Mean Corpuscular Hemoglobin 30.6 pg (28.0-32.0) Mean Corpuscular Hemoglobin Concent 33.6 g/dL (32.0-36.0) Red Cell Distribution Width 14.1 % (11.8-14.3) Platelet Count 264 10^3/uL (140-450) Mean Platelet Volume 8.6 fL (6.9-10.8) Neutrophils (%) (Auto) 65.8 % (37.0-80.0) Lymphocytes (%) (Auto) 21.5 % (10.0-50.0) Monocytes (%) (Auto) 10.4 % (0.0-12.0) Eosinophils (%) (Auto) 1.8 % (0.0-7.0) Basophils (%) (Auto) 0.5 % (0.0-2.0) Neutrophils # (Auto) 8.3 10 ^3/uL (1.6-8.6) Lymphocytes # (Auto) 2.7 10 ^3/uL (0.4-5.4) Monocytes # (Auto) 1.3 10 ^3/uL (0-1.3) Eosinophils # (Auto) 0.2 10 ^3/uL (0-0.8) Basophils # (Auto) 0.1 10 ^3/uL (0-0.2) Nucleated Red Blood Cells 0.0 % Prothrombin Time 27.5 sec (9.3-11.8) Prothrombin Time INR 2.88 (0.9-1.15) Activated Partial Thromboplast Time 41.0 SEC (24.5-34.5) Sodium Level 138 mmol/L (136-145) Potassium Level 4.4 mmol/L (3.5-5.1) Chloride Level 106 mmol/L (98-107) Carbon Dioxide Level 21 mmol/L (20-31) Anion Gap 11 (5-15) Blood Urea Nitrogen 20 mg/dL (9-23) Creatinine 1.20 mg/dL (0.700-1.30) Glomerular Filtration Rate Calc 65 mL/min (>90) BUN/Creatinine Ratio 16.7 (10.0-20.0) Serum Glucose 99 mg/dL (74-106) Calcium Level 8.7 mg/dL (8.7-10.4) D-Dimer, Quantitative 0.20 mg/L FEU (0.0-0.49) Urine Creatinine 62.62 mg/dL (30.0-125.0) Urine Total Protein < 6.0 mg/dL (1-14) Creatine Kinase 107 U/L (46-171) Test 11/22/24 23:00 11/22/24 20:15 11/22/24 16:43 11/22/24 16:28 Influenza Type A Antigen Negative (Negative) Influenza Type B Antigen Negative (Negative) SARS-CoV-2 Antigen (Rapid) Negative (NEGATIVE) Urine Color Colorless (Yellow) Urine Clarity Clear (Clear) Urine pH 5.5 (5.0-9.0) Urine Specific [place] 1.009 (1.001-1.035) Urine Protein Negative (Negative) Urine Ketones Negative (Negative) Urine Blood Negative /uL (Negative) Urine Nitrite Negative (Negative) Urine Bilirubin Negative (Negative) Urine Urobilinogen Normal mg/dL (Negative) Urine Leukocyte Esterase Negative /uL (Negative) Urine RBC None seen /hpf (0 - 3) Urine Microscopic WBC 1 /HPF (0-3) Urine Squamous Epithelial Cells None seen /hpf (<5) Urine Bacteria None seen /hpf (None Seen) Urine Glucose Normal mg/dL (Normal) Urine Opiates Screen Neg (NEGATIVE) Urine Fentanyl Screen Neg (NEGATIVE) Urine Barbiturates Screen Neg (NEGATIVE) Urine Phencyclidine Screen Neg (NEGATIVE) Urine Amphetamines Screen Neg (NEGATIVE) Urine Benzodiazepines Screen Neg (NEGATIVE) Urine Cocaine Screen Neg (NEGATIVE) Urine Cannabinoids Screen Neg (NEGATIVE) Lipase 31 U/L (12-53) B-Type Natriuretic Peptide 56.69 pg/mL (0-100) Other Laboratory Tests 11/25/24 06:06 Brief Hx & Hospital Course: The patient is a 73 year old male Prior medical history of hypertension, 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 According to the patient, he was standing on a step stool and reaching out to something when the step stool slipped and he fell on the ground impacting his right abdomen. He did not complain of dizziness or loss of consciousness before or after the episode. He had shortness of breath and chest pain after the episode. So the patient went to [facility] where he was discharged after full workup and told he has contusions. The patient states his pain increased on going back home and he came to the ER. evaluation in the ED the patient was in mild distress and hypertensive. Initial labs show CBC and chemical panel within normal range. INR within therapeutic range, a with no significant findings, UDS negative, serology negative. Abdominopelvic CT shows no evidence of traumatic injury in the abdomen or pelvis. Rib x-ray shows no acute pulmonary disease and no displaced right rib fracture. Chest x-ray also shows no evidence of acute disease. Patient was admitted for workup and monitoring. He was started on a pain regimen. an echocardiogram was ordered showed mild LVH and mild LV diastolic dysfunction with LVEF 65%, calcified mitral annulus, aortic sclerosis, slightly dilated LA, normal RV function and no effusion. The patient was restarted on his warfarin. Due to previous history of carotid thrombosis, carotid Doppler was ordered which showed moderate to severe atherosclerotic disease and left internal carotid artery is occluded at the origin but there is flow distal to the occlusion, however this is chronic. The patient has progressed favorably. On evaluation today, he states that the pain has decreased significantly, he has been able to sleep comfortably, is tolerating oral diet, and is ambulating without difficulty. Currently denies chest pain, shortness of breath, dizziness, nausea, vomiting, fever, and palpitations. vitals have been stable. Follow up labs show minor leukocytosis which is considered to be reactive, otherwise are within normal range. He is considered stable for discharge home with prescription for [place] for control. He has been given follow-up appointment in the discharge clinic for further monitoring. He is recommended to follow up with his PCP at his earliest convenience. All medications and recommendations have been thoroughly explained, all questions have been answered. The patient states he understands and agrees. Physical Exam: General Appearance: Cooperative. Well developed. Well nourished. NAD Head Exam: Normal inspection Neck Exam: Normal inspection. Non-tender. Normal alignment Pulmonary/Respiratory: Chest non-tender. Clear bilateral breath sounds, no crackles, no wheezing. Cardiovascular/Chest: Regular rate and rhythm. No murmurs. No JVD. Peripheral Pulses: 2+ Radial (R). 2+ Radial (L). 2+ Pedal (R). 2+ Pedal (L) Abdominal Exam: Normal bowel sounds. Soft. normal abdomen, no visible veins, mild tenderness on right side of abdomen, small mobile mass on left upper abdomen ,No hepatospenomegaly Ankle Exam: Negative ankle edema Lower extremities: Negative lower extremity edema Neuro/Mental Status: A&O x4. Coherent. Thoughts/Psych: Normal thought pattern. Appropriate mood and affect. Good judgement and insight Skin Exam: Normal inspection. Normal color. Warm. Case discussed with Dr. Zuluaga Goals of care discussed with the patient for 25 minutes. Operations or Procedures COMPUTERIZED TOMOGRAPHY ABDOMEN AND PELVIS WITHOUT CONTRAST REASON FOR EXAM: Abdominal pain, status post fall COMPARISON: None TECHNIQUE: Spiral scans were acquired from the diaphragm to the symphysis pubis without intravenous contrast administration. 2-D coronal and sagittal reformatted images were provided. Radiation optimization: All CT scans at this facility use at least one of these dose optimization techniques: Automated exposure control mA and/or kV adjustment per patient size (includes targeted exams where dose is matched to clinical indication) or iterative reconstruction. RADIATION DOSE: CTDI: 8.57 mGy DLP: 506.60 mGy-cm FINDINGS: There is mild atelectasis at the lung bases. There is at least mild centrilobular emphysema. There is no pleural effusion. There is no pericardial effusion. There are coronary artery calcifications. The spleen is not enlarged. The liver is normal in size and contour. No calcified gallstone is identified. Evaluation of the abdominal organs is suboptimal in the absence of intravenous contrast. Unenhanced appearance of the pancreas is grossly unremarkable. The adrenal glands are normal. The kidneys are similar in size. There is a 2.6 cm simple exophytic cyst of the superior pole of the right kidney which requires no dedicated follow-up. There is no hydronephrosis of either kidney. The urinary bladder is unremarkable. The prostate and seminal vesicles are within normal limits. There is extensive descending sigmoid diverticulosis without evidence of diverticulitis. The colonic stool burden is small. The appendix is not definitely seen. There is no pericecal inflammatory change. There is no distention of the small bowel. No free fluid is identified in the abdomen or pelvis. There is no pneumoperitoneum. There is no pathologic lymphadenopathy by size criteria. There is no abdominal aortic aneurysm. There is extensive atherosclerosis. The right inguinal canal is empty. No acute osseous abnormality is identified. There are degenerative changes throughout the lumbar spine. IMPRESSION: No evidence of traumatic injury in the abdomen or pelvis. EXAMINATION: XY R RIB XRAY INDICATION: Rib pain, s/p fall COMPARISON: None TECHNIQUE: Frontal view of the chest and <OBLIQUE>> views of the R ribs history FINDINGS: No focal consolidation, pleural effusion or significant pneumothorax. Normal cardiomediastinal silhouette. No displaced right rib fracture. IMPRESSION: 1. No acute cardiopulmonary disease. No displaced right rib fracture. INDICATION: cough TECHNIQUE: Frontal view of the chest. COMPARISON: None FINDINGS: . The heart and mediastinal contours are grossly unremarkable. There is no evidence of pleural disease. The lungs are clear. The bony structures of the chest are intact without fracture. IMPRESSION: 1. No evidence of acute disease. ULTRASOUND CAROTID DUPLEX BILATERAL REASON FOR EXAM: s/p fall, question hx of carotid artery occlusion COMPARISON: None TECHNIQUE: Using real-time freeze-frame technique with a high-frequency small parts transducer, multiple longitudinal and transverse sections were obtained. Simultaneous color flow Doppler imaging was performed. FINDINGS: There is moderate to severe calcified and noncalcified plaque present in both internal carotid arteries. The left internal carotid artery is occluded proximally. Flow through the vertebral and external carotid arteries is antegrade bilaterally. PEAK SYSTOLIC VELOCITIES (cm/sec): RIGHT: CCA 82.6 Proximal ICA 104.8 Mid ICA 105.2 Distal ICA 99.9 ECA 203.4 ICA/CCA ratio 1.3 LEFT: CCA 70.5 Proximal ICA occluded Mid ICA 122.3 Distal ICA 120.2 ECA 121.3 ICA/CCA ratio 1.7 IMPRESSION: Moderate to severe atherosclerotic disease. The left internal carotid artery is occluded at the origin but there is flow distal to the occlusion. Consider further evaluation with CTA of the neck. EXAM: Two-dimensional and M-mode echocardiogram with Doppler and color Doppler. Blood Pressure: 153/90 mmHg INDICATION chf? RISK FACTORS Height: 5'10, Weight: 177 DIMENSIONS LVDd 3.8 (3.8-5.7cm) LA (2D) 3.1 (1.9-4.0cm) Aortic Root 3.6 (2.0- 3.7cm) LVDs 2.7 (2.5-4.0cm) LA (MM) (1.9-4.0cm) Aortic Cusp Exc 1.9 (1.5- 2.0cm) EF (%) 54.0 (55-70%) Rt. Atrium 3.4 (1.9-4.0cm) Asc. Aorta cm IVSd 1.1 (0.7-1.1cm) RV (D) 3.7 (1.8-2.4cm) PWd 0.8 (0.7-1.1cm) Mitral Valve Mitral Mitral Stenosis E wave 0.59m/s MV Mean GR. mmHg A wave 1.01m/s MV Peak GR. mmHg E/A ratio 0.6 2D MVA cm2 DECEL Time 219ms PRESS 1/2 Time ms Aortic Valve Aortic Valve Aortic Stenosis V1 0.82m/s AO Mean GR. 2mmHg V2 0.99m/s AO Peak GR. 4mmHg LVOT Diameter 2.4 (1.8-2.4cm) Doppler MARYA 3.75cm2 Pulmonic Valve V2 0.87m/s Other Information Quality : Technically Limited Rhythm : Technically limited study due to pt unable to lay on side, c/o of pain Conclusion MILD LVH AND MILD LV DIASTOLIC DYSFUNCTION LV EF IS 65% CALCIFIED MITRAL ANUULUS AORTIC SCLEROSIS SLIGHTLY DILATED LA NORMAL RV FUNCTION NO EFFUSION Condition at Discharge: Stable Final Diagnosis/Problems List Intractable abdominal pain post fall due to blunt trauma Hypertensive urgency, resolved History of carotid and lower extremity thrombus Hyperlipidemia Ruled out PE Secondary hypercoagulable state Possible Chronic Heart Failre with diastolic dysfunction allergy to penicillins [place] due to [employer] Discharge Disposition: Home Discharge Instruct/Medications Diet: Cardiac 2g Na,low cholest Activity: No Restrictions, As Tolerated Follow Up/Referral: Follow up with PCP in 1 week Follow up in [place] clinic in 1 week Medications: Continue home medications [place] 5 mg PO q6 hrs PRN Scheduled Amlodipine Besylate (Amlodipine Besylate), 5 MG PO DAILY, (Reported) Aspirin (Aspir-81), 1 TAB PO DAILY, (Reported) Atorvastatin Calcium (Atorvastatin Calcium), 1 TAB PO DAILY, (Reported) Carvedilol (Carvedilol), 12.5 MG PO Q12HR, (Reported) Hydrochlorothiazide (Hydrochlorothiazide), 1 TAB PO DAILY, (Reported) Lisinopril (Lisinopril), 20 MG PO DAILY, (Reported) Scheduled PRN Hydrocodone-Acetaminophen (Hydrocodone Bitartrate/AC 5-325 mg), 1 TAB PO Q6HPRN PRN Miscellaneous Medications Warfarin Sodium (Warfarin Sodium), 5 MG PO, (Reported) Discharge Statement: "Patient was advised to return to the ER or call 911 if any headaches, dizziness, shortness of breath, chest pain, abdominal pain, bleeding, fevers, or worsening of medical condition. Patient was counseled about treatment plan, medications, possible side effects, patientverbalized understanding. All questions were answered to the best of my ability. This discharge took greater then 30 minutes in planning, reviewing documentation, counseling the patient, and discussing with other team members." ASSESSMENT ASSESSMENT Assessment Intractable abdominal pain post fall due to blunt trauma KAROL JONES RESIDENT Nov 25, 2024 17:42
== END 2024-11-25 16:20 | disposition home or self-care (01) | DRG 304 ==
LOC: ER 15:36 → OVERFLOW 21:14 → WEST WING 11-23 01:40
PROVIDERS: ADMIT Internal Medicine Geriatric Medicine; ATTEND Internal Medicine Geriatric Medicine
DX: I16.0 Hypertensive urgency (principal); N17.0 Acute kidney failure with tubular necrosis; D68.69 Other thrombophilia; I50.32 Chronic diastolic (congestive) heart failure; I11.0 Hypertensive heart disease with heart failure; I73.9 Peripheral vascular disease, unspecified; E78.5 Hyperlipidemia, unspecified; Z20.822 Contact with and (suspected) exposure to COVID-19; Z88.0 Allergy status to penicillin; Z86.718 Personal history of other venous thrombosis and embolism
CPT/HCPCS: 36415; 71045; 71101; 74176; 80048; 80307; 81001; 82550; 82570; 83690; 83880; 84156; 85025; 85379; 85610; 85730; 87426; 87804; 93005; 93306; 93886; 96374; G0378